=== PATIENT | male | born 1955 | race Two or more races ===

== ENCOUNTER 2017-11-24 17:55 | Emergency (ER) | payer MEDICARE, OTHER ==
[~2017-11-24] VITALS: Ht 165.1 cm; Wt 106.6 kg
[~2017-11-24 17:55] MED LIST: DIOVAN160 MG PO; GABAPENTIN100 MG PO; HYDRALAZINE HCL50 MG PO; ISOSORBIDE MONO60 MG PO; MELOXICAM7.5 MG PO; METOPROLOL SUC200 MG PO; OMEPRAZOLE40 MG PO; PLAVIX75 MG PO; SIMVASTATIN10 MG PO
[2017-11-24] MEDS ORDERED: SENSIPAR30 MG PO (18:45)
[2017-11-24] MEDS ORDERED: ASPIR 8181 MG PO (18:45)
[2017-11-24] MEDS ORDERED: EFFIENT10 MG PO (18:45)
[2017-11-24] MEDS ORDERED: GABAPENTIN100 MG PO (18:45)
[2017-11-24] MEDS ORDERED: CLINDAMYCIN PHOS 600 MG/ 4 ML VIAL IM ONE (19:30)
[2017-11-24] MEDS ORDERED: HYDROCODONE/APAP 10MG-325MG TAB PO ONE (19:30)
[2017-11-24] MEDS ORDERED: CLINDAMYCIN PHOS 300MG/2ML VIAL ONE (19:35)
[2017-11-24] MEDS ORDERED: HYDROCODONE/APAP 10MG-325MG TAB ONE (19:37)
[2017-11-24 19:54] VITALS: BP 136/84
== END 2017-11-24 20:00 | disposition home or self-care (01) ==
LOC: ER 17:55
DX: L02.31 Cutaneous abscess of buttock (principal); Z79.82 Long term (current) use of aspirin; Z88.2 Allergy status to sulfonamides; Z88.8 Allergy status to other drugs, medicaments and biological substances
CPT/HCPCS: 10061; 96372; 99283